=== PATIENT | female | born 1985 | race Caucasian/White ===

== ENCOUNTER 2020-12-20 15:14 | Emergency (ER) | payer BC ==
[~2020-12-20] VITALS: Ht 170.2 cm; Wt 68.0 kg
== END 2020-12-20 18:10 | disposition home or self-care (01) ==
LOC: ER1 15:14
DX: Z23 Encounter for immunization (principal); U07.1 COVID-19; J45.909 Unspecified asthma, uncomplicated; Z86.73 Personal history of transient ischemic attack (TIA), and cerebral infarction without residual deficits
CPT/HCPCS: 99283; M0243